=== PATIENT | male | born 1950 | race African-American/Black ===

== ENCOUNTER 2025-02-11 11:55 | Emergency (ER) | payer MEDICARE, OTHER ==
[~2025-02-11] VITALS: Ht 172.7 cm; Wt 109.8 kg
[2025-02-11 12:04] VITALS: BP 131/69
[2025-02-11] MEDS ORDERED: APIX5TAB4 PO (12:09)
[2025-02-11] MEDS ORDERED: ASPI81TA31 PO (12:09)
[2025-02-11] MEDS ORDERED: METO-356 PO (12:16)
[2025-02-11] MEDS ORDERED: AMIT25TA22 PO (12:16)
[2025-02-11] MEDS ORDERED: ATOR20TA PO (12:16)
[2025-02-11] MEDS ORDERED: AMIO200T72 PO (12:16)
[2025-02-11] MEDS ORDERED: EMPA10TA PO (12:16)
[2025-02-11] MEDS ORDERED: LEVO175T7 PO (12:16)
[2025-02-11] MEDS ORDERED: SPIR25TA6 PO (12:16)
[2025-02-11] MEDS ORDERED: GABA600T PO (12:16)
[2025-02-11] MEDS ORDERED: TAMS0.4C PO (12:16)
[2025-02-11] MEDS ORDERED: SACU1TAB PO (12:16)
[2025-02-11] MEDS ORDERED: OXYC-128 PO (14:36)
[2025-02-11] MEDS ORDERED: FLAS1EAC2 TP (14:36)
[2025-02-11] MEDS ORDERED: FLAS1KIT2 TP (14:36)
[2025-02-11 15:40] VITALS: BP 124/71; O2SAT 99
== END 2025-02-11 15:43 | disposition home or self-care (01) ==
LOC: ER 11:55
DX: S40.011A Contusion of right shoulder, initial encounter (principal); E11.9 Type 2 diabetes mellitus without complications; G89.29 Other chronic pain; M18.10 Unilateral primary osteoarthritis of first carpometacarpal joint, unspecified hand; S09.90XA Unspecified injury of head, initial encounter; Z79.01 Long term (current) use of anticoagulants; Z79.82 Long term (current) use of aspirin; Z79.84 Long term (current) use of oral hypoglycemic drugs; Z79.890 Hormone replacement therapy; Z79.899 Other long term (current) drug therapy; Z91.013 Allergy to seafood; V18.4XXA Pedal cycle driver injured in noncollision transport accident in traffic accident, initial encounter; Y93.55 Activity, bike riding; Y92.410 Unspecified street and highway as the place of occurrence of the external cause; Y99.9 Unspecified external cause status
CPT/HCPCS: 70450; 73030; 73110; 93005; A4606; A4663